=== PATIENT | male | born 1940 | race Caucasian/White ===

== ENCOUNTER → 2017-07-10 | Outpatient (CLI) | payer OTHER, MEDICARE | LOC: BHLMT 08:30 | PROVIDERS: ATTEND Internal Medicine Cardiovascular Disease | DX: I25.10 Atherosclerotic heart disease of native coronary artery without angina pectoris (principal) | CPT/HCPCS: 76775-PO ==

== ENCOUNTER → 2017-07-19 | Outpatient (CLI) | payer OTHER, MEDICARE | LOC: BHLMT 13:00 | PROVIDERS: ATTEND Internal Medicine Cardiovascular Disease | DX: I25.10 Atherosclerotic heart disease of native coronary artery without angina pectoris (principal) | CPT/HCPCS: 78452; 93017; A9500; J2785 ==

== ENCOUNTER 2017-07-25 11:12 | Inpatient (IN) | payer OTHER, MEDICARE ==
[2017-07-25] MEDS ORDERED: ACETAMINOPHEN 325 MG TAB PO PRN (11:20)
[2017-07-25] MEDS ORDERED: diphenhydrAMINE 25 MG CAP PO ONE (11:20)
[2017-07-25] MEDS ORDERED: ASPIRIN EC 325 MG TAB PO ONE (11:20)
[2017-07-25] MEDS ORDERED: TEMAZEPAM 15 MG CAP PO PRN (11:20)
[2017-07-25] MEDS ORDERED: NS 1,000 ML IV SCH (11:20)
[2017-07-25] MEDS ORDERED: NITROGLYCERIN 0.4 MG BTL SL PRN (11:20)
[2017-07-25] MEDS ORDERED: FAMOTIDINE 20 MG TAB PO ONE (11:20)
[2017-07-25] MEDS ORDERED: DIAZEPAM 5 MG TAB PO ONE (11:20)
--- NOTE | 2017-07-25 11:48 | CPEKG ---
Heart Rate: 65 RR Interval: 923 P-R Interval: 144 QRSD Interval: 104 QT Interval: 476 QTC Interval: 495 P [place]: 20 QRS [place]: -49 T Wave [place]: 97 EKG Severity - ABNORMAL ECG - EKG Impression: SINUS RHYTHM EKG Impression: SUPRAVENTRICULAR BIGEMINY EKG Impression: INFERIOR INFARCT, AGE INDETERMINATE EKG Impression: ABNRM R PROG, CONSIDER ASMI OR LEAD PLACEMENT EKG Impression: LATERAL LEADS ARE ALSO INVOLVED Electronically Signed By: Jim Kaplan 26-Jul-2017 17:30:52
[2017-07-25 12:05] LABS: % IMMATURE GRANULYOCYTES 0.4 % (0.0-1.1); ABSOLUTE IMMATURE GRANULOCYTES 0.03 10^3/uL (0.00-0.10); ADD DIFF? NO; ADD MORPH? NO; ADD SCAN? NO; ATYPICAL LYMPHOCYTE FLAG 10 (0-99); FRAGMENT RBC FLAG 0 (0-99); HEMATOCRIT 42.5 % (40.0-51.0); LEFT SHIFT FLG 0 (0-99); LIPEMIA HEMOLYSIS FLAG 80 (0-99); MEAN CELL HEMOGLOBIN 30.6 pg (27.9-34.1); MEAN CELL HEMOGLOBIN CONCENTR. 32.9 g/dL (32.4-36.7); MEAN CELL VOLUME 92.8 fL (81.5-99.8); MEAN PLATELET VOLUME 12.2 fL (8.7-11.7); PLATELET CLUMPS FLAG 20 (0-99); PLATELET COUNT 107 10^3/uL (150-400); RED BLOOD CELL COUNT 4.58 10^6/uL (4.40-6.38); RED CELL DISTRIBUTION WIDTH 15.3 % (11.5-15.2)
[2017-07-25 12:16] LABS: APTT 31.3 SEC (23.0-38.0); INR 1.28 (0.83-1.16)
[2017-07-25 12:22] LABS: ALANINE AMINOTRANSFERASE 65 IU/L (21-72); ALBUMIN 4.1 g/dL (3.5-5.0); ALKALINE PHOSPHATASE 129 IU/L (38-126); ANION GAP 14 mEq/L (8-16); ASPARTATE AMINOTRANSFERASE 44 IU/L (17-59); BILIRUBIN,TOTAL 1.2 mg/dL (0.1-1.4); CALCIUM 9.2 mg/dL (8.5-10.4); CARBON DIOXIDE 20 mEq/l (22-31); CHLORIDE 104 mEq/L (97-110); CHOLESTEROL 138 mg/dL (140-220); CHOLESTEROL/HDL RATIO 4.93 RATIO (1.00-4.97); CREATININE 1.7 mg/dL (0.7-1.3); GLOMERULAR FILTRATION RATE 39; GLUCOSE 77 mg/dL (70-100); HIGH DENSITY LIPOPROTEIN 28 mg/dL (40-65); LDL/HDL RATIO 3.46 RATIO (1.00-3.64); LOW DENSITY LIPOPROTEIN 97 mg/dL (80-100); MAGNESIUM 1.6 mg/dL (1.6-2.3); NON-HIGH DENSITY LIPOPROTEIN 110 mg/dL (90-129); POTASSIUM 3.9 mEq/L (3.5-5.2); SODIUM 138 mEq/L (134-144); TOTAL PROTEIN 6.4 g/dL (6.3-8.2); TRIGLYCERIDE 65 mg/dL (40-150); VERY LOW DENSITY LIPOPROTEINS 13 mg/dL (8-25)
--- NOTE | 2017-07-25 12:38 | PDHPUP ---
History & Physical Update H&P update statement: This history and physical update is based on an assessment of the patient which was completed after admission or registration (within 24 hours), but prior to the surgery/procedure. H&P update: H&P reviewed & patient examined, no change in patient's condition since H&P completed
--- NOTE | 2017-07-25 12:38 | PDPROPOC ---
Sedation Plan of Care Sedation Plan of Care: vital signs stable ASA Classification: ASA 2 Planned drugs: fentanyl, midazolam Mallampati Score: Class 2 Mallampati Reference Image: Patient passed 3-3-2 rule?: Yes
[2017-07-25] MEDS ORDERED: IOPAMIDOL (ISOVUE-370) 150 ML BTL IV ONE (12:53)
[2017-07-25] MEDS ORDERED: fentaNYL 100 MCG/2 ML INJ ONE (12:53)
[2017-07-25] MEDS ORDERED: MIDAZOLAM 2 MG/2 ML VIAL ONE (12:53)
[2017-07-25] MEDS ORDERED: LIDOCAINE 1% 300 MG/30 ML SDV ONE (12:53)
[2017-07-25] MEDS ORDERED: HEPARIN 10,000 UNIT/10 ML MDV ONE (13:25)
[2017-07-25] MEDS ORDERED: ATROPINE SULFATE 1 MG/10 ML SYR IVP PRN (14:14)
[2017-07-25] MEDS ORDERED: ONDANSETRON 4 MG/2 ML VIAL IVP PRN (14:14)
[2017-07-25] MEDS ORDERED: ALBUTEROL 200 PUFFS/18 GM MDI IH PRN (14:38)
--- NOTE | 2017-07-25 16:04 | POSTOPPROG ---
Post Op Note Date of Operation: 07/25/17 Surgeon: Antony Bradley Anesthesia: IV Sedation Pre-op Diagnosis: CHF/Ischemic CM. Post-op Diagnosis: Same. Indication: Same. Procedure: R/LHC via right groin. Findings: Severe lac [place] CAD. Patent PARTIDA to LAD. Oher grafts occcluded. EF 20%. Inf/Abcess present in the surg proc area at time of surgery?: No Depth: Superfical (Skin SQ) EBL: Minimal Complications: None.
[2017-07-25] MEDS ORDERED: 1/2 NS 1,000 ML IV SCH (16:15)
[2017-07-25] MEDS: ASCORBIC ACID 500 MG TAB PO SCH (20:24)
[2017-07-26] MEDS: ASCORBIC ACID 500 MG TAB PO SCH ×2 (08:30→20:04)
[2017-07-26] MEDS: CLOPIDOGREL BISULFATE 75 MG TAB PO SCH (08:30)
[2017-07-26 08:50] LABS: ANION GAP 11 mEq/L (8-16); CALCIUM 8.5 mg/dL (8.5-10.4); CARBON DIOXIDE 20 mEq/l (22-31); CHLORIDE 106 mEq/L (97-110); CREATININE 1.7 mg/dL (0.7-1.3); GLOMERULAR FILTRATION RATE 39; GLUCOSE 79 mg/dL (70-100); POTASSIUM 3.8 mEq/L (3.5-5.2); SODIUM 137 mEq/L (134-144)
[2017-07-26] MEDS ORDERED: FUROSEMIDE 40 MG TAB PO SCH (09:00)
[2017-07-26] MEDS ORDERED: FUROSEMIDE 40 MG/4 ML VIAL IVP ONE (09:48)
[2017-07-26] MEDS ORDERED: FUROSEMIDE 40 MG/4 ML VIAL IVP SCH (11:00)
--- NOTE | 2017-07-26 11:06 | ASMTCASEMG ---
Living Arrangements What is your living Answers: With Spouse arrangement? Who do you live with? Type Of Residence What kind of residence do Answers: House you live in? Discharge Plan Comments Coordination Status Comments Notes: Chart reviewed and spoke w/ VESTA Fischer, pt is a 77 y/o man admitted for a s/p cath. No therapies ordered at this time. Pt will most likely d/c when medically stable w/ supportive . CM available for changes. Date Signed: 07/26/2017 11:05 AM Electronically Signed By:CHARLES Mar
[2017-07-26] MEDS: METOPROLOL TARTRATE 25 MG TAB PO SCH ×2 (12:37→20:04)
[2017-07-26] MEDS: FUROSEMIDE 40 MG/4 ML VIAL IVP SCH (14:25)
--- NOTE | 2017-07-26 15:43 | PDCARPN ---
Cardiology Progress Note Chief Complaint: SCHF Assessment/Plan: Assessment: 77 M PMH CAD/CABG 1990 and 2001 with resection of ascending aortic dissection and aneurysm, resuspension of of aortic valve, ascending aortic graft repair, redo CABG SVG to RCA/PD, AAA repair in 2005, htn, dyslipidemia, admitted for elective L/RHC done 07/25/17, after nuclear stress test showed large area of infarct and EF 20%. Echo with similarly low EF and mod-severe MR/TR. Being admitted for IV diuresis. #. new O/S SCHF: has dyspnea with minimal exertion, abdominal bloating, fatigue c/w NYHA FC III-IV symptoms was not on medical management until just prior to admission but D/C'd Coreg due to fatigue and hypotension started on low dose Metoprolol has agreed to IV diuresis fluid restrict and dietary consult ordered #. CAD: LHC with occluded grafts except for PARTIDA to LAD patent; EF 20%/ RHC findings still pending dictation reports intolerance to Atorvastatin and unclear if tried on other agents will titrate heart failure medications first #. CKD: of unknown chronicity/ given IV lasix now BMP in AM #. mod-severe MR/TR: likely functional/ will follow with serial echoes #. htn: BP low #. LOS: pt admitted to inpt status for IV diuresis and follow labs #. DVT ppx: plan for early ambulation Plan: Labs in AM Possible DC tomorrow Subjective: Feels abdominal bloating, dyspnea, fatigue. No cp/palps/presyncope. Time Spent With Patient: 25 minutes with >50% spent on counseling Objective: Vital Signs (8 Hrs) Temp Pulse Resp BP Pulse Ox 07/26/17 14:33 120/70 07/26/17 12:00 98.3 F 88 16 118/99 H 96 07/26/17 08:00 97.7 F 64 18 115/73 95 Intake/Output (24 Hrs) 07/25/17 07/26/17 07/27/17 05:59 05:59 05:59 Intake Total 300 370 Output Total 250 1550 Balance 50 -1180 Intake: Oral (ml) 300 370 Output: Urine (ml) 250 1550 Toilet 1550 Urinal 250 Other: Weight 73.1 kg Intake Quantity Yes Sufficient Number of Voids Toilet 2 Result Diagrams: 07/25/17 11:50 07/26/17 08:24 Telemetry: SR - Physical Exam Constitutional: no apparent distress Eyes: PERRL Ears, Nose, Mouth, Throat: moist mucous membranes Cardiovascular: regular rate and rhythm, no murmurs, no gallops Respiratory: clear to auscultate bilat, no crackles Gastrointestinal: normoactive bowel sounds, no tenderness Skin: no rashes, no abrasions Neurologic: AAOx3 Psychiatric: cooperative, interactive ICD10 Worksheet Patient Problems: Problems Problem Status Onset CAD (coronary artery disease) Acute CHF (congestive heart failure) Acute
[2017-07-27 05:26] LABS: % IMMATURE GRANULYOCYTES 0.4 % (0.0-1.1); ABSOLUTE IMMATURE GRANULOCYTES 0.03 10^3/uL (0.00-0.10); ADD DIFF? NO; ADD MORPH? NO; ADD SCAN? NO; ATYPICAL LYMPHOCYTE FLAG 0 (0-99); FRAGMENT RBC FLAG 0 (0-99); HEMATOCRIT 35.2 % (40.0-51.0); LEFT SHIFT FLG 0 (0-99); LIPEMIA HEMOLYSIS FLAG 90 (0-99); MEAN CELL HEMOGLOBIN 30.9 pg (27.9-34.1); MEAN CELL HEMOGLOBIN CONCENTR. 34.1 g/dL (32.4-36.7); MEAN CELL VOLUME 90.7 fL (81.5-99.8); PLATELET CLUMPS FLAG 0 (0-99); PLATELET COUNT 77 10^3/uL (150-400); RED BLOOD CELL COUNT 3.88 10^6/uL (4.40-6.38); RED CELL DISTRIBUTION WIDTH 15.4 % (11.5-15.2)
[2017-07-27 05:34] LABS: ALANINE AMINOTRANSFERASE 48 IU/L (21-72); ALKALINE PHOSPHATASE 82 IU/L (38-126); ANION GAP 12 mEq/L (8-16); ASPARTATE AMINOTRANSFERASE 42 IU/L (17-59); CALCIUM 8.3 mg/dL (8.5-10.4); CARBON DIOXIDE 21 mEq/l (22-31); CHLORIDE 104 mEq/L (97-110); CREATININE 1.6 mg/dL (0.7-1.3); GLOMERULAR FILTRATION RATE 42; GLUCOSE 74 mg/dL (70-100); POTASSIUM 3.5 mEq/L (3.5-5.2); SODIUM 137 mEq/L (134-144); TOTAL PROTEIN 5.2 g/dL (6.3-8.2)
[2017-07-27] MEDS: METOPROLOL TARTRATE 25 MG TAB PO SCH ×2 (08:36→20:15)
[2017-07-27] MEDS: ASCORBIC ACID 500 MG TAB PO SCH ×2 (08:36→20:15)
[2017-07-27] MEDS: CLOPIDOGREL BISULFATE 75 MG TAB PO SCH (08:36)
[2017-07-27] MEDS: FUROSEMIDE 40 MG/4 ML VIAL IVP SCH (08:38)
[2017-07-27] MEDS ORDERED: PROTOCOL POTASSIUM 1 DOSE MISC PRN (09:53)
--- NOTE | 2017-07-27 09:59 | PDCARPN ---
Cardiology Progress Note Chief Complaint: SCHF Assessment/Plan: Assessment: 77 M PMH CAD/CABG 1990 and 2001 with resection of ascending aortic dissection and aneurysm, resuspension of of aortic valve, ascending aortic graft repair, redo CABG SVG to RCA/PD, AAA repair in 2005, htn, dyslipidemia, admitted for elective L/RHC done 07/25/17, after nuclear stress test showed large area of infarct and EF 20%. Echo with similarly low EF and mod-severe MR/TR. Being admitted for IV diuresis. #. new O/S SCHF: has dyspnea with minimal exertion, abdominal bloating, fatigue c/w NYHA FC III-IV symptoms was not on medical management until just prior to admission but D/C'd Coreg due to fatigue and hypotension started on low dose Metoprolol has agreed to IV diuresis and tolerated this well BNP has increased from prior to admission (12k now with previous 8k on 07/20) though weight down >5 kg will therefore switch fluid restrict and dietary consult ordered #. CAD: LHC with occluded grafts except for PARTIDA to LAD patent; EF 20%/ RHC findings still pending dictation reports intolerance to Atorvastatin and unclear if tried on other agents will titrate heart failure medications first #. edema: R>L leg (left leg with no pretibial edema and R leg with pitting edema ) will obtain U/S to R/O RLE DVT #. PVD: started on DAPT #. CKD: of unknown chronicity/ given IV lasix now BMP this AM with stable Cr 1.6 #. mod-severe MR/TR: likely functional/ will follow with serial echoes #. htn: had been having hypotension but now improved #. LOS: pt admitted to inpt status for IV diuresis and follow labs #. DVT ppx: plan for early ambulation Plan: Labs in AM Possible DC tomorrow 07/27/17 10:04 Subjective: Feels improved though still notes feeling fluid overloaded. No cp/dyspnea. Objective: Vital Signs (8 Hrs) Temp Pulse Resp BP Pulse Ox 07/27/17 08:00 98 F 83 18 130/65 H 96 07/27/17 04:00 97.7 F 71 18 110/85 H 93 Intake/Output (24 Hrs) 07/26/17 07/27/17 07/28/17 05:59 05:59 05:59 Intake Total 300 1170 Output Total 250 2450 Balance 50 -1280 Intake: Oral (ml) 300 1170 Output: Urine (ml) 250 2450 Toilet 0 Urinal 250 400 Other: Weight 73.1 kg 67.7 kg Intake Quantity Yes Sufficient Number of Voids Toilet 2 Result Diagrams: 07/27/17 04:20 07/27/17 04:20 Cardiac Labs: Laboratory Tests 07/27/17 04:20 NT-Pro-B Natriuret Pep 16108 H - Physical Exam Constitutional: no apparent distress Eyes: PERRL Ears, Nose, Mouth, Throat: moist mucous membranes Cardiovascular: regular rate and rhythm, jugular vein distention Respiratory: clear to auscultate bilat, no crackles Gastrointestinal: normoactive bowel sounds, other (+ distension) Skin: no rashes, other (R>L leg edema) Neurologic: AAOx3 Psychiatric: cooperative, interactive ICD10 Worksheet Patient Problems: Problems Problem Status Onset CAD (coronary artery disease) Acute CHF (congestive heart failure) Acute
[2017-07-27] MEDS: FUROSEMIDE 100 MG in D5W 100 ML IV SCH ×2 (10:46→20:14)
[2017-07-27] MEDS: POTASSIUM CL 10 MEQ TAB PO SCH (11:11)
[2017-07-27] MEDS: ASPIRIN EC 81 MG TAB PO SCH (11:12)
--- NOTE | 2017-07-27 14:26 | PDCARPN ---
Cardiology Progress Note Chief Complaint: SCHF Assessment/Plan: Assessment: 77 M PMH CAD/CABG 1990 and 2001 with resection of ascending aortic dissection and aneurysm, resuspension of of aortic valve, ascending aortic graft repair, redo CABG SVG to RCA/PD, AAA repair in 2005, htn, dyslipidemia, admitted for elective L/RHC done 07/25/17, after nuclear stress test showed large area of infarct and EF 20%. Echo with similarly low EF and mod-severe MR/TR. Being admitted for IV diuresis. #. new O/S SCHF: has dyspnea with minimal exertion, abdominal bloating, fatigue c/w NYHA FC III-IV symptoms was not on medical management until just prior to admission but D/C'd Coreg due to fatigue and hypotension started on low dose Metoprolol has agreed to IV diuresis and tolerated this well BNP has increased from prior to admission (12k now with previous 8k on 07/20) though weight down >5 kg will therefore switch to Lasix gtt fluid restrict and dietary consult ordered #. CAD: LHC with occluded grafts except for PARTIDA to LAD patent; EF 20%/ RHC findings still pending dictation reports intolerance to Atorvastatin and unclear if tried on other agents will titrate heart failure medications first #. edema: R>L leg (left leg with no pretibial edema and R leg with pitting edema ) no e/o DVT #. questionable PAF: no e/o this consider obtaining outpatient holter #. sleep disturbance: pt should have outpatient sleep study #. PVD: started on DAPT #. CKD: of unknown chronicity/ given IV lasix now BMP this AM with stable Cr 1.6 #. mod-severe MR/TR: likely functional/ will follow with serial echoes #. htn: had been having hypotension but now improved #. LOS: pt admitted to inpt status for IV diuresis and follow labs #. DVT ppx: plan for early ambulation Plan: Labs in AM Pt agrees to stay for another day for ongoing Lasix gtt Will send meds to pharmacy Outpatient follow up 07/27/17 14:27 Subjective: Feels improved but still edematous. No orthopnea. Noting pnd. Objective: Vital Signs (8 Hrs) Temp Pulse Resp BP Pulse Ox 07/27/17 11:39 64 16 120/63 97 07/27/17 08:00 98 F 83 18 130/65 H 96 Intake/Output (24 Hrs) 07/26/17 07/27/17 07/28/17 05:59 05:59 05:59 Intake Total 300 1170 Output Total 250 2450 450 Balance 50 -1280 -450 Intake: Oral (ml) 300 1170 Output: Urine (ml) 250 2450 450 Toilet 2050 450 Urinal 250 400 Other: Weight 73.1 kg 67.7 kg Intake Quantity Yes Sufficient Number of Voids Toilet 2 Result Diagrams: 07/27/17 04:20 07/27/17 04:20 - Physical Exam Constitutional: no apparent distress ICD10 Worksheet Patient Problems: Problems Problem Status Onset CAD (coronary artery disease) Acute CHF (congestive heart failure) Acute chronic disease mgmt/transitional care Acute
[2017-07-27 18:00] LABS: POTASSIUM 3.6 mEq/L (3.5-5.2)
[2017-07-27 20:34] VITALS: RESP 16
[2017-07-28] MEDS: FUROSEMIDE 100 MG in D5W 100 ML IV SCH (04:05)
[2017-07-28 04:09] LABS: ANION GAP 13 mEq/L (8-16); CALCIUM 8.8 mg/dL (8.5-10.4); CARBON DIOXIDE 24 mEq/l (22-31); CHLORIDE 100 mEq/L (97-110); CREATININE 1.5 mg/dL (0.7-1.3); GLOMERULAR FILTRATION RATE 46; GLUCOSE 94 mg/dL (70-100); POTASSIUM 3.3 mEq/L (3.5-5.2); SODIUM 137 mEq/L (134-144)
[2017-07-28] MEDS ORDERED: POTASSIUM CL 10 MEQ TAB PO ONE (04:32)
[2017-07-28 07:24] VITALS: PULSE 77
[2017-07-28] MEDS: ASCORBIC ACID 500 MG TAB PO SCH (07:55)
[2017-07-28] MEDS: METOPROLOL TARTRATE 25 MG TAB PO SCH (07:55)
[2017-07-28] MEDS: CLOPIDOGREL BISULFATE 75 MG TAB PO SCH (07:56)
[2017-07-28] MEDS: ASPIRIN EC 81 MG TAB PO SCH (07:56)
[2017-07-28] MEDS: POTASSIUM CL 10 MEQ TAB PO SCH (07:57)
[2017-07-28 10:56] VITALS: BP 95/62; TEMP 98.2; O2SAT 96
--- NOTE | 2017-07-28 14:29 | ASDISCHSUM ---
Discharge Information Plan Status:Home with No Needs Medically Cleared to Leave:07/28/2017 Discharge Date:07/28/2017 11:44 AM CM D/C Disposition:Home, Routine, Self-Care ADT D/C Disposition:Home, Routine, Self-Care Projected Discharge Date:07/28/2017 11:44 AM Transportation at D/C:Family Discharge Delay Reason: Follow-Up Date:07/28/2017 11:44 AM Discharge Slot:1 - 8:01 am - 12:00 noon Final Diagnosis:New o/s SCHF, CAD, edema, questionable PAF, PVD Placement Information Patient Contact Information Contact Name:CRISTIANO Relationship: Address:[address] Work Phone: [facility] Phone: [facility]/Zip Code:[place] [address] Email: Financial Information Financial Class: Primary Plan Desc:MEDICARE INPATIENT Primary Plan Number:[id number] Secondary Plan Desc:[employer]/MDR SUPPLEMENT Secondary Plan Number:[id number] Assessment Information [facility] Initial CM Assessment Living Arrangements What is your living Answers: With Spouse arrangement? Who do you live with? Type Of Residence What kind of residence do Answers: House you live in? Discharge Plan Comments Coordination Status Comments Notes: Chart reviewed and spoke w/ VESTA Fischer, pt is a 77 y/o man admitted for a s/p cath. No therapies ordered at this time. Pt will most likely d/c when medically stable w/ supportive . CM available for changes. Date Signed: 07/26/2017 11:05 AM Electronically Signed By:CHARLES Mar [facility] CM Progress Note CM Note CM Note Notes: Reviewed chart re: d/c poc, pt's progress. Pt to discharge home today independently w/ family support and no identified needs. No PT/OT orders. Pt to f/u as directed. IM not signed, pt admission <48 hrs. CM avail for any further issues or concerns. Date Signed: 07/28/2017 02:28 PM Electronically Signed By:Jolly Lacey RN Intervention Information Intervention Type:*JACOB-Signed Date of Service:07/26/2017 09:32 AM Patient Type:Observation Staff Member:Di Ibrahim Hours: Discipline: Severity: Comment:
--- NOTE | 2017-07-28 14:35 | GDS ---
[f rep st] DISCHARGE SUMMARY ADMISSION DIAGNOSES: 1. Dyspnea on exertion. 2. Coronary artery disease. 3. Chronic systolic heart failure. 4. Ischemic cardiomyopathy. 5. Renal insufficiency. 6. Peripheral vascular disease. 7. Abnormal stress test. 8. History of abdominal aortic aneurysm with repair. DISCHARGE DIAGNOSES: 1. Coronary artery disease. 2. Ischemic cardiomyopathy. 3. Chronic systolic heart failure. 4. Renal insufficiency. 5. Peripheral vascular disease 6. History of abdominal aortic aneurysm, status post repair. 7. Hyperlipidemia. PROCEDURES DONE DURING HOSPITALIZATION: 1. Electrocardiogram. 2. Right and left heart catheterization. 3. Ultrasound of lower extremities to evaluate for DVT. BRIEF HISTORY: Please see H and P. The patient is a 77-year-old male with significant past history of CAD,, CABG in 1990 and repeat in repeated in 2001, with resection of the ascending, aorta due to dissection and aneurysm, AAA repair in 2005, hypertension, and hyperlipidemia. He had recently seen Dr. Flynn at our office to reestablish care, reporting ongoing fatigue symptoms. He did undergo nuclear stress testing, which showed a large area of infarction with significantly reduced ejection fraction of 20%. Soon afterwards. He underwent echocardiogram which showed similarly low EF and [id number] MR and TR. He also had recent laboratory study showing significant elevation in BNP. With his new findings from stress testing, and experiencing NYHA class III-IV symptoms, it was felt best that patient undergo cardiac catheterization for further evaluation. HOSPITAL COURSE: Patient was admitted through CVC, prepped for procedure, and taken to the cardiac catheterization lab. There, Dr. Bradley performed a left and right cardiac catheterization. Left heart catheterization showed all grafts were occluded except for PARTIDA to the LAD, which was patent. His ejection fraction was estimated around 20%. It was felt that none of the disease was able to be intervened upon, and it was felt best treatment at this current time was medical management. As for his right heart catheterization, pressures taken during testing showed pulmonary wedge pressure mean of 21, PA of 39/16 with a mean of 25, RV 37/10 with an end-diastolic pressure of 17, right atrium pressure of 17 LV 122 with a diastolic of 22, an EDP of 25, and AO was 124/68 with a mean of 89. No complications during the procedure. Patient was transferred back to the CVC, and due to the patient noted to have significantly elevated creatinine, he was admitted overnight for monitoring, and transferred to the PCU. On the , patient reported ongoing fatigue symptoms and shortness of breath. He was started on IV diuresis of Lasix with little improvement. On the , repeated BNP was done, showing further elevation at 12,200. It was decided at that time that, in an attempt to get better diuresis for him, he would be started on a Lasix drip. After running it for close to 24 hours, the patient's weight had significantly dropped: Admission weight of 73.1 kg and discharge weight of 65.9. He is net negative. He reports significantly improved in shortness of breath and his peripheral edema to his lower extremities improved. Patient is very insistent to go home today, with or without medical consent. It was decided to send him home on p.o. torsemide and. PHYSICAL EXAMINATION: (Done today) GENERAL APPEARANCE: Thin, elderly male. Alert and orientated to person, place , time, and situation. Appears to be under no acute distress. VITAL SIGNS: Currently, blood pressure of 116/71, heart rate of 77. Sinus rhythm on the monitor, patient has been noted to have occasional PVC and couplet, but no other malignant arrhythmias or pauses noted through hospitalization. Respirations are 16, saturating 94% on room air, and temperature of 36.7 degrees Celsius. HEENT: Head is normocephalic. Lips and tongue are pink and moist with no signs of cyanosis. Conjunctivae pink. NECK: Trachea is midline , +2 carotid pulses bilateral. No auscultated bruits. Jugular veins 4-5 cm above sternal notch at a 45-degree angle. RESPIRATORY: Lungs are clear to auscultation. No rhonchi, rales or wheezes. No accessory muscle use. No intercostal muscle retraction noted. CARDIAC: Regular rate, regular rhythm. S1, S2. A 2/6 systolic murmur noted along the left sternal border. ABDOMEN: Soft, nontender. Bowel sounds x4 quadrants. No organomegaly. No palpable masses. SKIN: Omer, warm, and dry. No cyanosis. No clubbing. No peripheral edema. VASCULAR: +2 carotids bilateral. +2 radials bilateral. +1 dorsal pedal and posterior tibial pulses bilateral. GROIN SITE/CATHETER INSERTION SITE : No redness, swelling, drainage, ecchymosis, or hematoma. No auscultated bruit. LABORATORY DATA: Laboratory studies done on July 27 show white blood cell count of 7.8, hemoglobin of 12.0, hematocrit of 35.2, platelet count of 77 today. Electrolytes: Sodium was 137, potassium 3.3, chloride 100, CO2 24, BUN 40, creatinine 1.5, glucose 94, calcium 8.8. ProBNP was 14,000. Patient's discharge weight was 65.9 kg, down from admission weight 73.1 kg. STUDIES: Admission electrocardiogram showed sinus rhythm, with noted Q-waves in inferior leads, premature atrial contraction, and abnormal R-wave progression in anterior leads. Right and left heart catheterization as mentioned above. Venous ultrasound study done on July 27 (due to patient reporting increased swelling in right leg) showing no deep vein thrombosis in right leg. DISCHARGE DISPOSITION: Patient is discharged home in fair condition. He is under activity restrictions of not lifting more than 10 pounds for the next week and no strenuous activity for the next 2 weeks. DISCHARGE MEDICATIONS: Please see discharge medication reconciliation sheet. Noted that patient had been on carvedilol prior to admission when was noted to be bradycardic and mildly hypotensive. He has been transitioned over to metoprolol tartrate at 12.5 mg p.o. twice daily. Unfortunately, for his ischemic cardiomyopathy, due to his lower blood pressures, he has not been able to be started on an Yandel or ARB at this time, but consideration of starting him on it as an outpatient can be done. He is also being sent home on home dose of aspirin, and he has been started on clopidogrel at 75 mg p.o. daily. His home Lasix dosage has been discontinued, and he has been started on torsemide at 20 mg p.o. b.i.d., and his home potassium chloride level has been increased to 20 mEq p.o. daily. DISCHARGE INSTRUCTIONS: Post cardiac catheterization discharge instructions gone over with the patient and his , including monitoring for signs of infections, activity restrictions, and bathing precautions. They verbalize understanding. I also have asked the patient to monitor his weight daily; he is to notify our office if he gains more than 2 pounds in a day or 5 pounds in a week. Importance of medication compliance were explained to the patient, and went over all new prescriptions; he verbalized understanding. He is also on a fluid restriction of no more than 2 L in 1 day. At the time of discharge, patient and verbalized understanding and discharge instructions, and have no questions. They have been told that if any problems or concerns do come up post discharge, they are to notify our office or return to the hospital. The patient has a followup appointment set this coming with Dr. Elizabeth; the day before, he is to have laboratory studies drawn, including a CBC, BNP, and BMP. TOTAL TIME SPENT ON DISCHARGE: Greater than 30 minutes. /[id number]/MODL MTDD
== END 2017-07-28 11:44 | disposition home or self-care (01) | DRG 287 ==
LOC: FCATH 11:12 → F2W 14:34 → OBSVTOIN 07-26 17:05
PROVIDERS: ADMIT Internal Medicine Cardiovascular Disease; ATTEND Internal Medicine Cardiovascular Disease
PROC: B211Y10 Fluoroscopy of Multiple Coronary Arteries using Other Contrast, Laser Intraoperative (ICD-10-PCS; principal; 2017-07-26)
PROC: B216YZZ Fluoroscopy of Right and Left Heart using Other Contrast (ICD-10-PCS; principal; 2017-07-26)
PROC: B21 Imaging, Heart, Fluoroscopy (ICD-10-PCS; principal; 2017-07-26)
PROC: 4A023N8 Measurement of Cardiac Sampling and Pressure, Bilateral, Percutaneous Approach (ICD-10-PCS; principal; 2017-07-26)
DX: I11.0 Hypertensive heart disease with heart failure (principal); I50.23 Acute on chronic systolic (congestive) heart failure; I25.810 Atherosclerosis of coronary artery bypass graft(s) without angina pectoris; N28.9 Disorder of kidney and ureter, unspecified; I25.5 Ischemic cardiomyopathy; E78.5 Hyperlipidemia, unspecified; I73.9 Peripheral vascular disease, unspecified
CPT/HCPCS: J1644; J1940; J2250; J3010; Q9967

== ENCOUNTER → 2017-08-15 | Outpatient (CLI) | payer OTHER, MEDICARE | LOC: FIMAGING 10:03 | PROVIDERS: ATTEND Physician Assistant Medical | PROC: B54BZZA Ultrasonography of Right Lower Extremity Veins, Guidance (ICD-10-PCS; principal; 2017-08-15) | DX: K40.90 Unilateral inguinal hernia, without obstruction or gangrene, not specified as recurrent (principal) ==

== ENCOUNTER → 2017-08-20 | Outpatient (CLI) | payer OTHER, MEDICARE | LOC: BHFA 09:00 | PROVIDERS: ATTEND Internal Medicine Interventional Cardiology | DX: I48.91 Unspecified atrial fibrillation (principal) ==

== ENCOUNTER 2017-08-28 12:27 | Inpatient (IN) | payer OTHER, MEDICARE ==
[2017-08-28] MEDS ORDERED: LIDOCAINE 1% 2 ML INJ ONE (12:46)
[2017-08-28] MEDS ORDERED: LR 1,000 ML IV ONE (13:01)
[2017-08-28] MEDS ORDERED: ceFAZolin 2 GM/SWFI 2 GM/20 ML SYR IVP ONE (13:01)
[2017-08-28] MEDS ORDERED: LIDOCAINE 1% 2 ML INJ ID PRN (13:01)
[2017-08-28] MEDS ORDERED: BUPIVACAINE 0.5% 30 ML SDV ONE ×2 (15:10→17:39)
[2017-08-28] MEDS ORDERED: ETOMIDATE 20 MG/10 ML VIAL ONE (15:16)
[2017-08-28] MEDS ORDERED: fentaNYL 100 MCG/2 ML INJ ONE ×3 (15:16→19:03)
[2017-08-28] MEDS ORDERED: PROPOFOL 200 MG/20 ML VIAL ONE ×5 (15:17→18:22)
[2017-08-28] MEDS ORDERED: LIDOCAINE 2% 5 ML SDV ONE (16:11)
[2017-08-28] MEDS ORDERED: ROCURONIUM 50 MG/5 ML VIAL ONE ×2 (16:11→17:03)
[2017-08-28] MEDS ORDERED: DEXAMETHASONE 4 MG/ML VIAL ONE (16:11)
[2017-08-28] MEDS ORDERED: ONDANSETRON 4 MG/2 ML VIAL ONE ×2 (16:19→19:13)
[2017-08-28] MEDS ORDERED: SUGAMMADEX SODIUM 200 MG/2 ML VIAL IVP ONE (17:03)
[2017-08-28] MEDS ORDERED: ERTAPENEM 1 GM in NS 100 ML IV ONE (17:30)
[2017-08-28] MEDS ORDERED: PROMETHAZINE HCL 25 MG/ML INJ IVP PRN (18:05)
[2017-08-28] MEDS ORDERED: ALBUTEROL 3 ML DEYVIAL IH PRN (18:05)
[2017-08-28] MEDS ORDERED: fentaNYL 100 MCG/2 ML INJ IVP PRN (18:05)
[2017-08-28] MEDS ORDERED: ACETAMINOPHEN 500 MG TAB PO PRN (18:05)
[2017-08-28] MEDS ORDERED: NALOXONE HCL 0.4 MG/ML INJ IVP PRN (18:05)
[2017-08-28] MEDS ORDERED: OXYCODONE/APAP 5/325 TAB PO PRN (18:05)
[2017-08-28] MEDS ORDERED: HYDROmorphONE/DILAUDID 1 MG/ML INJ IVP PRN (18:05)
[2017-08-28] MEDS ORDERED: ONDANSETRON 4 MG/2 ML VIAL IVP PRN (18:05)
[2017-08-28] MEDS ORDERED: LABETALOL HCL 5 MG/ML 20 ML MDV IVP PRN (18:05)
[2017-08-28] MEDS ORDERED: D5W 1/2 NS W/ 20 KCl/L 1,000 ML IV SCH (18:30)
--- NOTE | 2017-08-28 18:36 | POSTANESTH ---
Post Anesthetic Evaluation Cardiovascular Status: Normal, Stable Respiratory Status: Normal, Stable Level of Consciousness/Mental Status: Can Participate in Eval Pain Control: Adequate, Prn Tx Ordered Nausea/Vomiting Control: Adequate, Prn Tx Ordered Complications Possibly Related to Anesthesia: None Noted
--- NOTE | 2017-08-28 18:36 | POSTOPPROG ---
Post Op Note Date of Operation: 08/28/17 Surgeon: Tyler Hernández Sampler And Test Preparer: YASIR Anesthesiologist: HERIBERTO Anesthesia: GET(General Endotracheal) Pre-op Diagnosis: INCISIONAL RECURRENT HERNIA/ RECURRENT RIH Post-op Diagnosis: SAME Indication: PAIN Procedure: OPEN RIH REPAIR, RECURRENTAND OPEN RECURRENT VENTRAL HERNIA REPAIR Findings: RECURRENT DIRECT RIHAND COMPLICATED VH WITH MESH AND ENTANGLED SB Inf/Abcess present in the surg proc area at time of surgery?: Yes Depth: Organ Space EBL: 50-100 Complications: 0
--- NOTE | 2017-08-28 18:38 | PDANEPAE ---
ANE History of Present Illness right inguinal and umbilical hernia ANE Past Medical History - Cardiovascular History Hx Hypertension: Yes Hx Arrhythmias: No Hx Chest Pain: No Hx Coronary Artery / Peripheral Vascular Disease: Yes Hx CHF / Valvular Disease: Yes Hx Palpitations: No - Pulmonary History Hx COPD: No Hx Asthma/Reactive Airway Disease: No Hx Recent Upper Respiratory Infection: No Hx Oxygen in Use at Home: No Hx Sleep Apnea: No Sleep Apnea Screening Result - Last Documented: Positive - Neurologic History Hx Cerebrovascular Accident: Yes Hx Seizures: No Hx Dementia: No Neurologic History Comment: 1987 - Endocrine History Hx Diabetes: No Hypothyroid: No Obesity: no - Renal History Hx Renal Disorders: Yes - Liver History Hx Hepatic Disorders: No - Neurological & Psychiatric Hx Hx Neurological and Psychiatric Disorders: No - Cancer History Hx Cancer: No - Congenital Disorder History Hx Congenital Disorders: No - GI History Hx Gastrointestinal Disorders: No - Other Health History Other Health History: DANIEL LOWER EXT EDEMA - Chronic Pain History Chronic Pain: No - Surgical History Prior Surgeries: UMBILICAL HERNIA X3. AAA 2006. GABG X2 1996. DANIEL ING HERNIA ANE Review of Systems Review of systems is: negative Review of Systems: - Exercise capacity METS (RN): 4 METS ANE Patient History - Allergies Allergies/Adverse Reactions: No Known Allergies Allergy (Unverified 08/23/17 11:20) - Home Medications Home medications: home medication list seen and reviewed Home Medications: Albuterol [Proventil Inhaler HFA (*)] 1 - 2 puffs IH DAILY PRN 07/24/17 [Last Taken 07/29/17] Ascorbic Acid [Vitamin C 500 mg (*)] 500 mg PO BID 07/24/17 [Last Taken 08/24/17 ] Herbals/Supplements -Info Only 1 ea PO DAILY 07/24/17 [Last Taken 08/21/17] Furosemide [Lasix 20 MG (*)] 20 mg PO DAILY 08/23/17 [Last Taken 08/25/17] Lisinopril [Zestril 5 mg (*)] 5 mg PO DAILY 08/23/17 [Last Taken 08/25/17] Metoprolol Tartrate [Lopressor 25 mg (*)] 12.5 mg PO DAILY 08/23/17 [Last Taken 08/25/17] Nitroglycerin [Nitrostat 0.4 mg (*)] 0.4 mg SL Q5M PRN 08/23/17 [Last Taken Unknown] - NPO status NPO Since - Liquids (Date): 08/28/17 NPO Since - Liquids (Time): 11:00 NPO Since - Solids (Date): 08/27/17 NPO Since - Solids (Time): 19:00 - Anes Hx Anes Hx: no prior problems - Smoking Hx Smoking Status: Former smoker ANE Labs/Vital Signs - Labs Result Diagrams: 08/28/17 13:28 - Vital Signs Blood Pressure: 133/76 Heart Rate: 68 Respiratory Rate: 16 O2 Sat (%): 95 Height: 171.5 cm Weight: 67.2 kg ANE Physical Exam - Airway Neck exam: FROM Mallampati Score: Class 1 Mouth exam: normal dental/mouth exam - Pulmonary Pulmonary: no respiratory distress - Cardiovascular Cardiovascular: irregularly irregular - ASA Status ASA Status: IV ANE Anesthesia Plan Anesthesia Plan: general endotracheal anesthesia Urgent/Emergent Case: Marychuy mohr completed preop but documented later for safe timely pt care
[2017-08-28] MEDS ORDERED: HYDROmorphONE/DILAUDID 1 MG/ML INJ ONE (19:03)
[2017-08-29] MEDS: KETOROLAC 15 MG/1 ML SDV IVP SCH ×2 (01:06→05:43)
[2017-08-29] MEDS: ACETAMINOPHEN 325 MG TAB PO PRN ×3 (04:52→20:14)
[2017-08-29] MEDS: ERTAPENEM 1 GM in NS 100 ML IV SCH (10:16)
[2017-08-29] MEDS ORDERED: HYDROmorphONE/DILAUDID 1 MG/ML INJ IVP PRN (11:34)
[2017-08-29] MEDS ORDERED: HYDROCODONE/APAP 5/325 TAB PO PRN (11:34)
--- NOTE | 2017-08-29 11:41 | SOAPPROG ---
SOAP Progress Note Assessment/Plan: Assessment/Plan: 77 Y M +cardiac hx, s/p open complicated VH repair with extensive CARMELA and removal of foreign body/mesh, and large open recurrent RIH repair. POD#1. Called to see patient for new midline swelling this am. Suspect hematoma. Expressed dark sanguinous drainage. Fascia appears to be intact on my exam. No bright red blood. Returned about 20 minutes later with no change in exam-- abdomen surrounding incision was very soft. +hematoma, but do not suspect active bleeding. Still, needs monitoring. Asked for sand bag for pressure. Ok to get OOB as needed. H&H in am. Don't feel need for stat H&H unless there are changes. Pain controlled. Start clear liquid diet. Continue IV abx for contamination risks from extensive adhesiolysis. S: ambulating well. easily gets in and oob. no n/v. no dizziness. O: alert, nad, no pallor. no wob rrr abd soft, +soft bulging around midline inc c dark sanguinous drainage. fascia intact with light jimena salvas 08/29/17 11:34 Objective: Vital Signs Temp Pulse Resp BP Pulse Ox 36.4 C 81 16 134/79 H 98 08/29/17 07:16 08/29/17 07:16 08/29/17 07:16 08/29/17 07:16 08/29/17 07:16 Laboratory Results 08/28/17 13:28 08/28/17 08/29/17 08/30/17 05:59 05:59 05:59 Intake Total 1140 Output Total 290 400 Balance 850 -400 ICD10 Worksheet Patient Problems: Problems Problem Status Onset CAD (coronary artery disease) Acute CHF (congestive heart failure) Acute chronic disease mgmt/transitional care Acute
--- NOTE | 2017-08-29 12:11 | ASMTCMCOM ---
CM Note CM Note Notes: Pt came in for scheduled surgery, anticpate will dc home w/support of when medically stable. CM available for any changes. Date Signed: 08/29/2017 12:10 PM Electronically Signed By:Rosa Elena Quintana RN
[2017-08-30] MEDS: ACETAMINOPHEN 325 MG TAB PO PRN ×2 (03:13→08:44)
--- NOTE | 2017-08-30 07:02 | SOAPPROG ---
NACHO Progress Note Assessment/Plan: Assessment: s/p R inguinal and ventral hernia repair. Called to bedside due to swelling and ecchymosis Pain by midline incision but otherwise feels well Does not want to go home Penis and scrotom ecchymotic but not swollen Some swelling by left midline incision Provided reassurance and will monitor swelling by midline Will take weeks for ecchymosis to totally resolve Dr. Hernández will evaluate appropriate discharge plan Plan: 08/30/17 07:00 Objective: Vital Signs Temp Pulse Resp BP Pulse Ox 36.9 C 85 16 110/67 92 08/30/17 03:11 08/30/17 03:11 08/30/17 03:11 08/30/17 03:11 08/30/17 03:11 Laboratory Results 08/30/17 04:57 08/28/17 13:28 08/29/17 08/30/17 08/31/17 05:59 05:59 05:59 Intake Total 1140 1300 Output Total 290 850 Balance 850 450 ICD10 Worksheet Patient Problems: Problems Problem Status Onset CAD (coronary artery disease) Acute CHF (congestive heart failure) Acute chronic disease mgmt/transitional care Acute
[2017-08-30] MEDS: ERTAPENEM 1 GM in NS 100 ML IV SCH (08:45)
--- NOTE | 2017-08-30 12:09 | SOAPPROG ---
NACHO Progress Note Assessment/Plan: Assessment: 77-year-old male status post open ventral hernia repair with extensive lysis of adhesions and removal of foreign body mesh, right inguinal hernia repair Patient reports he is doing much better this morning when compared to last night , reports decreased swelling, still some concern over the ecchymosis over his scrotum and penis. He is tolerating a small amount clears, has not eaten a regular diet yet Pleasant male in no apparent distress Chest CTA bilaterally Abdomen stapled incisions midline and right inguinal region without any significant discharge or erythema, moderate ecchymosis over the scrotum and penis Plan: Seen examined with Dr. Hernández Possible discharge later today if tolerating regular diet and ambulating well. Pain prescription placed in the paper chart for possible discharge. Okay for nursing to call [phone] if patient doing very well later this afternoon and desires discharge. Again he will need to ambulate and tolerate a regular diet. 08/30/17 12:06 Objective: Vital Signs Temp Pulse Resp BP Pulse Ox 36.5 C 84 18 134/78 H 93 08/30/17 08:00 08/30/17 08:00 08/30/17 08:00 08/30/17 08:00 08/30/17 08:00 Laboratory Results 08/30/17 04:57 08/28/17 13:28 08/29/17 08/30/17 08/31/17 05:59 05:59 05:59 Intake Total 1140 1300 Output Total 290 850 Balance 850 450 ICD10 Worksheet Patient Problems: Problems Problem Status Onset CAD (coronary artery disease) Acute CHF (congestive heart failure) Acute chronic disease mgmt/transitional care Acute
[2017-08-30 12:24] VITALS: BP 114/79; PULSE 76; RESP 16; TEMP 98.2; O2SAT 90
--- NOTE | 2017-08-30 18:01 | GDS ---
[f rep st] DISCHARGE SUMMARY ADMISSION DIAGNOSIS: Surgery for ventral and right inguinal hernia. OTHER PERTINENT DIAGNOSIS: Cardiac history. HOSPITAL COURSE: Patient is a pleasant 77-year-old male who underwent an open complicated ventral he rnia repair with extensive lysis of adhesions and removal of foreign body/mesh and a large right ingu inal hernia repair for recurrent hernia. His hospital course was remarkable for development of significant ecchymosis over his penis and scrot um. He did have some discharge from one of his incisions at one point which resolved before discharge . Hospital course, also remarkable for midline swelling which diminished significantly prior to dischar ge. He is discharged home with instructions to follow up in our office in approximately 7-10 days. He do es have marsha over his midline and right inguinal region. He can shower as needed over the stapled incisions. Patient was reassured that most likely ecchymosis will continue to dissipate. He will c all our office if he has any difficulty with urination or notices any skin breakdown. /[id number]/MODL
--- NOTE | 2017-08-31 09:45 | ASDISCHSUM ---
Discharge Information Plan Status:Home with No Needs Medically Cleared to Leave: Discharge Date:08/30/2017 03:27 PM CM D/C Disposition:Home, Routine, Self-Care ADT D/C Disposition:Home, Routine, Self-Care Projected Discharge Date:08/30/2017 03:27 PM Transportation at D/C:Family Discharge Delay Reason: Follow-Up Date:08/30/2017 03:27 PM Discharge Slot: Final Diagnosis: Placement Information Patient Contact Information Contact Name:CRISTIANO Relationship: Address:[address] [place] Work Phone: [facility] Phone: [facility]/Zip Code:[place] [address] Email: Financial Information Financial Class: Primary Plan Desc:MEDICARE INPATIENT Primary Plan Number:[id number] Secondary Plan Desc:AARP/MDR SUPPLEMENT Secondary Plan Number:[id number] Assessment Information [facility] CM Progress Note CM Note CM Note Notes: Pt came in for scheduled surgery, anticpate will dc home w/support of when medically stable. CM available for any changes. Date Signed: 08/29/2017 12:10 PM Electronically Signed By:Rosa Elena Quintana RN Intervention Information Intervention Type:*IM-Signed Date of Service:08/30/2017 02:19 PM Patient Type:Inpatient Staff Member:Di Ibrahim Hours: Discipline: Severity: Comment: Intervention Type:*Occurence 72 Date of Service:08/30/2017 03:49 PM Patient Type:Inpatient Staff Member:VESTA Wells Susan Hours: Discipline: Severity: Comment:
--- NOTE | 2017-08-31 09:45 | ASDISCHSUM ---
Discharge Information Plan Status:Home with No Needs Medically Cleared to Leave: Discharge Date:08/30/2017 03:27 PM CM D/C Disposition:Home, Routine, Self-Care ADT D/C Disposition:Home, Routine, Self-Care Projected Discharge Date:08/30/2017 03:27 PM Transportation at D/C:Family Discharge Delay Reason: Follow-Up Date:08/30/2017 03:27 PM Discharge Slot: Final Diagnosis: Placement Information Patient Contact Information Contact Name:CRISTIANO Relationship: Address:[address] [place] Work Phone: [facility] Phone: [facility]/Zip Code:[place] [address] Email: Financial Information Financial Class: Primary Plan Desc:MEDICARE INPATIENT Primary Plan Number:[id number] Secondary Plan Desc:[employer]ARP/MDR SUPPLEMENT Secondary Plan Number:[id number] Assessment Information [facility] CM Progress Note CM Note CM Note Notes: Pt came in for scheduled surgery, anticpate will dc home w/support of when medically stable. CM available for any changes. Date Signed: 08/29/2017 12:10 PM Electronically Signed By:Rosa Elena Quintana RN Intervention Information Intervention Type:*IM-Signed Date of Service:08/30/2017 02:19 PM Patient Type:Inpatient Staff Member:Di Ibrahim Hours: Discipline: Severity: Comment: Intervention Type:*Occurence 72 Date of Service:08/30/2017 03:49 PM Patient Type:Inpatient Staff Member:VESTA Wells Susan Hours: Discipline: Severity: Comment:
--- NOTE | 2017-08-31 09:45 | ASDISCHSUM ---
Discharge Information Plan Status:Home with No Needs Medically Cleared to Leave: Discharge Date:08/30/2017 03:27 PM CM D/C Disposition:Home, Routine, Self-Care ADT D/C Disposition:Home, Routine, Self-Care Projected Discharge Date:08/30/2017 03:27 PM Transportation at D/C:Family Discharge Delay Reason: Follow-Up Date:08/30/2017 03:27 PM Discharge Slot: Final Diagnosis: Placement Information Patient Contact Information Contact Name:CRISTIANO Relationship: Address:[address] [place] Work Phone: [facility] Phone: [facility]/Zip Code:[place] [address] Email: Financial Information Financial Class: Primary Plan Desc:MEDICARE INPATIENT Primary Plan Number:[id number] Secondary Plan Desc:AARP/MDR SUPPLEMENT Secondary Plan Number:[id number] Assessment Information [facility] CM Progress Note CM Note CM Note Notes: Pt came in for scheduled surgery, anticpate will dc home w/support of when medically stable. CM available for any changes. Date Signed: 08/29/2017 12:10 PM Electronically Signed By:Rosa Elena Quintana RN Intervention Information Intervention Type:*IM-Signed Date of Service:08/30/2017 02:19 PM Patient Type:Inpatient Staff Member:Di Ibrahim Hours: Discipline: Severity: Comment: Intervention Type:*Occurence 72 Date of Service:08/30/2017 03:49 PM Patient Type:Inpatient Staff Member:VESTA Wells Susan Hours: Discipline: Severity: Comment:
== END 2017-08-30 15:27 | disposition home or self-care (01) | DRG 354 ==
LOC: F3E 12:27 → OBSVTOIN 08-29 09:03
PROVIDERS: ADMIT Surgery; ATTEND Surgery
PROC: 0WQF0ZZ Repair Abdominal Wall, Open Approach (ICD-10-PCS; principal; 2017-08-28 14:00)
PROC: 0WUF0JZ Supplement Abdominal Wall with Synthetic Substitute, Open Approach (ICD-10-PCS; principal; 2017-08-28 14:00)
DX: K40.91 Unilateral inguinal hernia, without obstruction or gangrene, recurrent (principal); K42.9 Umbilical hernia without obstruction or gangrene; I11.0 Hypertensive heart disease with heart failure; I50.22 Chronic systolic (congestive) heart failure; I73.9 Peripheral vascular disease, unspecified; Z86.73 Personal history of transient ischemic attack (TIA), and cerebral infarction without residual deficits; Z87.891 Personal history of nicotine dependence
CPT/HCPCS: C1781; J0690; J1100; J1170; J1335; J2405; J2704; J3010

== ENCOUNTER 2018-07-10 09:38 | Day surgery (SDC) | payer OTHER, MEDICARE ==
[2018-07-10] MEDS ORDERED: ATROPINE SULFATE 1 MG/10 ML SYR IVP ONE (09:41)
[2018-07-10] MEDS ORDERED: fentaNYL 100 MCG/2 ML INJ IVP ONE (09:41)
[2018-07-10] MEDS ORDERED: MIDAZOLAM 2 MG/2 ML VIAL IVP ONE (09:41)
[2018-07-10] MEDS ORDERED: BENZOCAINE UNIT DOSE SPRAY HURRICAINE MM ONE (09:41)
[2018-07-10] MEDS ORDERED: NS 500 ML IV ONE (09:41)
--- NOTE | 2018-07-11 08:39 | CPEKG ---
Test Reason : OPEN Blood Pressure : / mmHG Vent. Rate : 074 BPM Atrial Rate : 126 BPM P-R Int : 179 ms QRS Dur : 107 ms QT Int : 495 ms P-R-T Axes : 054 -58 000 degrees QTc Int : 550 ms Atrial-paced complexes Inferior infarct, old Anteroseptal infarct, old Lateral leads are also involved Prolonged QT interval Confirmed by Kermit Flynn ([id number]) on 07/11/2018 8:39:21 AM Referred By: Confirmed By:Kermit Flynn
== END 2018-07-10 12:00 | disposition home or self-care (01) ==
LOC: FCATH 09:38
PROVIDERS: ATTEND Internal Medicine Cardiovascular Disease
DX: I48.91 Unspecified atrial fibrillation (principal); Z53.09 Procedure and treatment not carried out because of other contraindication

== ENCOUNTER → 2018-10-17 | Outpatient (CLI) | payer OTHER, MEDICARE | LOC: GIMAGING 19:23 | PROVIDERS: ATTEND Internal Medicine | DX: J40 Bronchitis, not specified as acute or chronic (principal) | CPT/HCPCS: 71046-PO ==

== ENCOUNTER → 2018-11-19 | Outpatient (CLI) | payer OTHER, MEDICARE | LOC: BHLMT 09:30 | PROVIDERS: ATTEND Internal Medicine Interventional Cardiology | DX: I25.10 Atherosclerotic heart disease of native coronary artery without angina pectoris (principal); I47.2 Ventricular tachycardia | CPT/HCPCS: 78452; 93017; A9500; J2785 ==